=== PATIENT | female | born 1990 | race Caucasian/White ===

== ENCOUNTER 2020-12-19 11:24 | Outpatient (CLI) | payer MEDICAID ==
[2020-12-19 17:51] LABS: BASOPHILS # (AUTO) 0.1 10^3/uL (0.0-0.1); BASOPHILS % (AUTO) 0.9 %; EOSINOPHILS # (AUTO) 0.1 10^3/uL (0.0-0.7); EOSINOPHILS % (AUTO) 1.7 %; HCT - HEMATOCRIT 44.6 % (37.0-47.0); HGB - HEMOGLOBIN 14.2 g/dL (12.0-16.0); LYMPHOCYTES # (AUTO) 2.8 10^3/uL (1.5-3.5); MEAN CORPUSCULAR HEMOGLOBIN 27.2 pg (27.0-31.0); MEAN CORPUSCULAR HGB CONC 31.8 g/dL (32.0-36.0); MEAN CORPUSCULAR VOLUME 85.4 fL (81.0-99.0); MEAN PLATELET VOLUME 9.6 fL (7.9-10.8); MONOCYTES # (AUTO) 0.5 10^3/uL (0.0-1.0); NEUTROPHILS # (AUTO) 3.9 10^3/uL (1.5-6.6); NEUTROPHILS % (AUTO) 52.7 %; PLT - PLATELET COUNT 392 10^3/uL (130-450); RED BLOOD COUNT 5.22 10^6/uL (4.20-5.40); RED CELL DISTRIBUTION WIDTH 13.1 % (12.0-15.0); WHITE BLOOD COUNT 7.5 x10^3/uL (4.8-10.8)
[2020-12-19 18:21] LABS: ALBUMIN 4.2 g/dL (3.2-5.5); ALBUMIN/GLOBULIN RATIO 1.2 (1.0-2.2); ALKALINE PHOSPHATASE 83 IU/L (42-121); ALT ALANINE AMINOTRANSFERASE 15 IU/L (10-60); AST ASPARTATE AMINOTRANSFERASE 17 IU/L (10-42); BILIRUBIN,TOTAL 0.6 mg/dL (0.2-1.0); BUN - BLOOD UREA NITROGEN 8 mg/dL (6-20); CALCIUM 8.9 mg/dL (8.5-10.3); CARBON DIOXIDE - CO2 27 mmol/L (21-32); CHLORIDE 99 mmol/L (101-111); CHOL/HDL RATIO 6.4 (<4.4); CHOLESTEROL 261 mg/dL; CREATININE 0.6 mg/dL (0.4-1.0); GFR - MDRD 117 (>89); GLUCOSE 102 mg/dL (70-100); HDL CHOLESTEROL 41 mg/dL; LDL CHOLESTEROL,CALCULATED 191 mg/dL; LDL/HDL RATIO 4.7 (<4.4); POTASSIUM 4.1 mmol/L (3.5-5.0); SODIUM 136 mmol/L (135-145); TOTAL PROTEIN 7.7 g/dL (6.7-8.2); TRIGLYCERIDES 143 mg/dL; VLDL CHOLESTEROL 29 mg/dL
[2020-12-19 18:31] LABS: THYROID STIMULATING HORMONE 1.7 uIU/mL (0.34-5.60)
[2020-12-19 20:45] LABS: ESTIMATED AVERAGE GLUCOSE 108 mg/dL (70-100); HEMOGLOBIN A1c% 5.4 % (4.27-6.07)
== END 2020-12-19 11:25 | disposition home or self-care (01) ==
LOC: LAB.N 11:24
PROVIDERS: ATTEND Registered Nurse
DX: L68.0 Hirsutism (principal); Z83.3 Family history of diabetes mellitus; Z86.32 Personal history of gestational diabetes
CPT/HCPCS: 36415; 80053; 80061; 81599; 83036; 83498; 83721; 84403; 84443; 85025

== ENCOUNTER 2021-10-03 10:38 | Outpatient (CLI) | payer MEDICAID ==
[2021-10-03 18:56] LABS: BASOPHILS # (AUTO) 0.1 10^3/uL (0.0-0.1); EOSINOPHILS # (AUTO) 0.7 10^3/uL (0.0-0.7); EOSINOPHILS % (AUTO) 5.6 %; HCT - HEMATOCRIT 43.6 % (37.0-47.0); HGB - HEMOGLOBIN 14.5 g/dL (12.0-16.0); LYMPHOCYTES # (AUTO) 3.8 10^3/uL (1.5-3.5); LYMPHOCYTES % (AUTO) 31.9 %; MEAN CORPUSCULAR HEMOGLOBIN 27.6 pg (27.0-31.0); MEAN CORPUSCULAR HGB CONC 33.3 g/dL (32.0-36.0); MEAN PLATELET VOLUME 10.2 fL (7.9-10.8); MONOCYTES # (AUTO) 0.8 10^3/uL (0.0-1.0); MONOCYTES % (AUTO) 6.4 %; NEUTROPHILS # (AUTO) 6.5 10^3/uL (1.5-6.6); NEUTROPHILS % (AUTO) 54.8 %; PLT - PLATELET COUNT 370 10^3/uL (130-450); RED BLOOD COUNT 5.25 10^6/uL (4.20-5.40); RED CELL DISTRIBUTION WIDTH 13.3 % (12.0-15.0); WHITE BLOOD COUNT 11.8 x10^3/uL (4.8-10.8)
[2021-10-03 19:13] LABS: ALBUMIN 4.5 g/dL (3.2-5.5); ALBUMIN/GLOBULIN RATIO 1.3 (1.0-2.2); ALKALINE PHOSPHATASE 79 IU/L (42-121); ALT ALANINE AMINOTRANSFERASE 20 IU/L (10-60); AST ASPARTATE AMINOTRANSFERASE 20 IU/L (10-42); BILIRUBIN,TOTAL 0.8 mg/dL (0.2-1.0); BUN - BLOOD UREA NITROGEN 5 mg/dL (6-20); CALCIUM 9.1 mg/dL (8.5-10.3); CARBON DIOXIDE - CO2 26 mmol/L (21-32); CHLORIDE 100 mmol/L (101-111); CHOL/HDL RATIO 6.5 (<4.4); CHOLESTEROL 261 mg/dL; CREATININE 0.6 mg/dL (0.4-1.0); GFR - MDRD 116 (>89); GLUCOSE 92 mg/dL (70-100); HDL CHOLESTEROL 40 mg/dL; LDL CHOLESTEROL,CALCULATED 185 mg/dL; LDL/HDL RATIO 4.6 (<4.4); POTASSIUM 3.1 mmol/L (3.5-5.0); SODIUM 137 mmol/L (135-145); TOTAL PROTEIN 7.9 g/dL (6.7-8.2); TRIGLYCERIDES 178 mg/dL; VLDL CHOLESTEROL 36 mg/dL
[2021-10-03 19:20] LABS: THYROID STIMULATING HORMONE 1.93 uIU/mL (0.34-5.60)
[2021-10-03 20:21] LABS: ESTIMATED AVERAGE GLUCOSE 114 mg/dL (70-100); HEMOGLOBIN A1c% 5.6 % (4.27-6.07)
== END 2021-10-03 10:39 | disposition home or self-care (01) ==
LOC: LAB.N 10:38
PROVIDERS: ATTEND Registered Nurse
DX: E24.9 Cushing's syndrome, unspecified (principal); R73.9 Hyperglycemia, unspecified; R63.5 Abnormal weight gain; E28.2 Polycystic ovarian syndrome; L68.0 Hirsutism
CPT/HCPCS: 36415; 80053; 80061; 81599; 82533; 83036; 83721; 84443; 85025

== ENCOUNTER 2021-10-06 12:00 | Outpatient (CLI) | payer MEDICAID | END 2021-10-06 23:59 | disposition home or self-care (01) | LOC: LAB.R 12:00 | PROVIDERS: ATTEND Registered Nurse | DX: E24.9 Cushing's syndrome, unspecified (principal); R73.9 Hyperglycemia, unspecified; R63.5 Abnormal weight gain; L68.0 Hirsutism | CPT/HCPCS: 81599; 82530 ==

== ENCOUNTER 2023-04-15 14:32 | Outpatient (CLI) | payer MEDICAID ==
[2023-04-15 19:35] LABS: BASOPHILS # (AUTO) 0.1 10^3/uL (0.0-0.1); BASOPHILS % (AUTO) 0.6 %; EOSINOPHILS # (AUTO) 0.2 10^3/uL (0.0-0.7); EOSINOPHILS % (AUTO) 1.9 %; HCT - HEMATOCRIT 43.4 % (37.0-47.0); LYMPHOCYTES # (AUTO) 3.4 10^3/uL (1.5-3.5); LYMPHOCYTES % (AUTO) 36.1 %; MEAN CORPUSCULAR HEMOGLOBIN 27.7 pg (27.0-31.0); MEAN CORPUSCULAR HGB CONC 32.3 g/dL (32.0-36.0); MEAN CORPUSCULAR VOLUME 85.8 fL (81.0-99.0); MEAN PLATELET VOLUME 10.7 fL (7.9-10.8); MONOCYTES # (AUTO) 0.6 10^3/uL (0.0-1.0); MONOCYTES % (AUTO) 6.2 %; NEUTROPHILS # (AUTO) 5.2 10^3/uL (1.5-6.6); NEUTROPHILS % (AUTO) 54.5 %; PLT - PLATELET COUNT 357 10^3/uL (130-450); RED BLOOD COUNT 5.06 10^6/uL (4.20-5.40); RED CELL DISTRIBUTION WIDTH 12.7 % (12.0-15.0); WHITE BLOOD COUNT 9.5 x10^3/uL (4.8-10.8)
[2023-04-15 19:57] LABS: ALBUMIN 4.3 g/dL (3.2-5.5); ALBUMIN/GLOBULIN RATIO 1.5 (1.0-2.2); BILIRUBIN,TOTAL 0.4 mg/dL (0.2-1.0); CALCIUM 9.4 mg/dL (8.5-10.3); CREATININE 0.6 mg/dL (0.6-1.3); POTASSIUM 3.8 mmol/L (3.5-4.5); TOTAL PROTEIN 7.1 g/dL (6.4-8.9)
== END 2023-04-15 14:33 | disposition home or self-care (01) ==
LOC: LAB.N 14:32
PROVIDERS: ATTEND Registered Nurse
DX: R73.9 Hyperglycemia, unspecified (principal); E28.2 Polycystic ovarian syndrome; Z79.899 Other long term (current) drug therapy
CPT/HCPCS: 36415; 80053; 85025

== ENCOUNTER 2023-05-10 20:49 | Emergency (ER) | payer MEDICAID ==
--- NOTE | 2023-05-10 21:49 | ED Physician Documentation ---
PD HPI HEENT - Stated complaint Stated Complaint: RT EAR PX - Chief complaint Chief Complaint: Heent - History obtained from History obtained from: Patient - Additional information Additional information: HPI from patient. Patient states "my right ear is swollen and I cannot hear anything out of it". Last month, patient was prescribed a 1-week course of amoxicillin for possible dental infection. Over the past 3 weeks, the patient has had waxing and waning bilateral ear pain for which she was put on Augmentin 1 week ago. The Augmentin was prescribed as a 10-day course, and thus she has a few days left of the Augmentin. She presents due to worsening right ear pain over the past 1 to 2 days, now with right ear swelling and decreased hearing (the swelling and decreased hearing were not symptoms she has been having until 1-2 days ago) Review of Systems Constitutional: denies: Fever, Chills, Sweats Ears: reports: Loss of hearing (decreased hearing right ear), Ear pain. denies: Drainage/discharge Nose: reports: Reviewed and negative PD PAST MEDICAL HISTORY - Past Medical History Past Medical History: No - Past Surgical History Past Surgical History: No - Present Medications Home Medications: Ambulatory Orders Medication Instructions Recorded Confirmed Clindamycin [Cleocin] 300 mg PO Q8H 06/09/15 06/09/15 Hydrocodone/Acetaminophen 1 each PO DAILY 06/09/15 06/09/15 [Hydrocodon-Acetaminophen 5-325] Cefuroxime Axetil [Cefuroxime] 500 mg PO BID #19 tablet 05/10/23 HYDROcod/ACETAM 5/325 [Kenyon 5/325] 1 - 2 tablet PO Q6H PRN #14 tablet 05/10/23 - Allergies Allergies/Adverse Reactions: Allergies Allergy/AdvReac Type Severity Reaction Status Date / Time No Known Drug Allergies Allergy Verified 05/10/23 21:02 - Social History Does the pt smoke?: No Smoking Status: Never smoker Does the pt drink ETOH?: No Does the pt have substance abuse?: No - Immunizations Immunizations are current?: Yes - POLST Patient has POLST: No PD ED PE NORMAL - Vitals Vital signs reviewed: Yes - General General: Alert and oriented X 3, No acute distress, Well developed/nourished PD ED PE EXPANDED - HEENT HEENT: Other (erythema, swelling of boyd of right ear. Right EAC is swollen with scant purulent material. despite swelling, the EAC remains widely patent. TM is WNL. left ear WNL (both external exam and EAC/TM exam)) Results - Vitals Vitals: Vital Signs - 24 hr 05/10/23 05/10/23 20:57 22:36 Temperature 36.1 C L 36.5 C Heart Rate 117 H 90 Respiratory 18 16 Rate Blood Pressure 132/100 H 126/88 H O2 Saturation 98 100 Oxygen O2 Source Room air PD Medical Decision Making - ED course Complexity details: considered differential, d/w patient ED course: Physical exam is suggestive of right external otitis as well as extension of cellulitis localized to the boyd of the right ear. I advised her to stop taking the Augmentin. She is given cefuroxime in the ED and a prescription for cefuroxime is provided. She is also provided Cortisporin otic drops with the first dose instilled in the right ear in the ED. Return precautions are disc ussed. Patient is also given take-home pack of Vicodin, as [id number] medications have been ineffective at controlling her pain today. I also provided a prescription for Vicodin Departure - Departure Disposition: Home, Self Care Clinical Impression: Right otitis externa Qualifiers: Otitis externa type: unspecified type Chronicity: acute Qualified Code(s): H60.501 - Unspecified acute noninfective otitis externa, right ear Condition: Good Instructions: ED Otitis Externa Follow-Up: Meliza Robledo ARNP [Primary Care Provider] - Prescriptions: Cefuroxime Axetil [Cefuroxime] 500 mg PO BID #19 tablet HYDROcod/ACETAM 5/325 [Kenyon 5/325] 1 - 2 tablet PO Q6H PRN #14 tablet PRN Reason: Pain Comments: Seeing that your symptoms are worsening despite having taken several days of the Augmentin, I recommend you stop the Augmentin at this point. Instead, use the antibiotic eardrops as follows: 3 to 4 drops in the right ear 3 times per day for 1 week. I have also electronically submitted a prescription for an oral antibiotic to the [facility] pharmacy in [place], as well as a prescription for vicodin (narcotic/opiate pain medication). Forms: PCP List Discharge Date/Time: 05/10/23 22:36
[2023-05-10] MEDS ORDERED: HYDROcod/ACETAM 5/325 MG TABLET PO STA (22:17)
[2023-05-10] MEDS ORDERED: NEOMYCIN/POLYMYX/HC OTIC DROPS RIGHTEAR STA (22:18)
[2023-05-10 22:44] VITALS: BP 126/88; O2SAT 100
== END 2023-05-10 22:36 | disposition home or self-care (01) ==
LOC: ED 20:49
DX: H60.501 Unspecified acute noninfective otitis externa, right ear (principal)
CPT/HCPCS: 99282; 99283; A9270

== ENCOUNTER 2023-11-28 14:09 | Outpatient (CLI) | payer MEDICAID ==
--- NOTE | 2023-11-28 15:07 | Sleep Patient Instructions ---
Sleep Center Visit Summary - Patient Visit Information Reason for Visit: Initial consult for evaluation of sleep disordered breathing and other sleep issues. - Patient Instructions Instructions Attached: Sleep Study Home Monitor Additional Instructions: You will be completing a sleep study, either an in-lab polysomnography (PSG) or home sleep study (HST). You will follow-up in the sleep care office after the sleep study is completed to hear the results and talk about therapy, if needed. You will be called by our office staff to schedule this appointment, but you may contact us with any questions. - Clinic Information Contact: [facility] [address] [place] [address] [email or web address] T: [phone]
--- NOTE | 2023-11-28 15:12 | SLEEP CARE CONSULTATION ---
Information from patient questionnaire entered by Meme Hopkins. I have reviewed and concur with the information entered by Meme Hopkins. This document represents the service I personally performed and the decisions made by me, Karma Garcia ARNP. History of Present Illness Service Date and Time: 11/28/2023 1409 Reason for Visit: New patient Chief Complaint: reports: Unrefreshed sleep, Snoring, Excessive daytime sleepiness Date of Onset: 2 MONTHS Usual bedtime: 2230 Time it takes to fall asleep: 3HRS Snores at night: Yes Observed to quit breathing while asleep: Yes Sleeps alone due to snoring: No Number of times waking at night: 2 Reasons for waking at night: reports: Bathroom Toss, Turn, or Twitch while sleeping: Yes Recalls having dreams: No Usually gets out of bed at: 0600 Feels refreshed in the morning: No Morning headache: Yes Sleepy or fatigued during the day: Yes Ever fallen asleep while driving: No Takes day naps: Yes Dreams during day naps: No Prior sleep studies: No Additional HPI information: I had the pleasure of seeing BOY BRUNO today regarding the possibility of her having a sleep disorder. Her current complaints are snoring and unrefreshed sleep. She says she has gained about 30 pounds. She thought maybe it may be related to her medication. The patient tells me that she normally goes to bed around 10:30 pm, and it takes her approximately 3 hours to fall asleep. She has been told that she snores loudly and irregularly at night. She has been observed to stop breathing in her sleep. She can recall waking up on the average of 2 times during the night. Most of the time she wakes up because of bathroom needs. She daughter has told her she will wake up and complain about being short of air. There is a lot of tossing and turning in her sleep. Generally there is no recollection of dreams. She usually wakes up at 0600 and does not feel refreshed. She is taking Phentermine for weight loss for a few weeks. She usually does have a morning headache about 2 times a month. During the day she complains of feeling sleepy and fatigued. She has never fallen asleep while driving nor has any accident due to sleepiness. She usually naps almost daily before she started on the P[place] for about 60 minutes during the day. If she naps, upon falling asleep during the day she denies having vivid dreams. She reports having impaired concentration during the day. There is no somniloquy (sleep talking) or somnambulism (sleep walking). - Parasomnia Symptoms Ever been unable to move upon waking from sleep: No Walks in sleep: No Talks in sleep: No Ever acted out dreams in sleep: No Ever felt weak in the knees when startled or emotional: No Bothered by creepy, crawly, restless sensations in legs: Yes Problems with memory or concentration: Yes Subjective Initial Pelican Sleepiness Scale score: 15 (11/28/23) Past Medical History Past Medical History: reports: Anemia, Anxiety, Asthma, Depression, GERD, Other (EPILEPSY as a child, resolved; OBESITY, RULING OUT PCOS) Social History The patient's occupation is a [employer]. Patient is Single and lives in . Have you smoked in the past 12 months: No Alcohol use: No Caffeine use: Yes Caffeine amount and frequency: 2 PER DAY BUT CUTTING BACK Family History Family history of sleep disordered breathing: Yes Family Hx Sleep Apnea: Other: Snoring (NEPHEW) Allergies and Home Medications Known drug allergies: No Drug allergies reviewed: Yes Home medication list reviewed: Yes (as listed) Allergy and home medication list: Allergies No Known Drug Allergies Allergy (Verified 11/26/23 09:19) Home Medications Medication Instructions Recorded Confirmed Last Taken Type Albuterol See Rx Instructions .ROUTE .COMPLEX 11/28/23 11/28/23 Unknown History Phentermine HCl See Rx Instructions .ROUTE .COMPLEX 11/28/23 11/28/23 Unknown History Spironolactone [Aldactone] See Rx Instructions .ROUTE .COMPLEX 11/28/23 11/28/23 Unknown History Review of Systems Weight gain over past 5 years: 37 Weight loss over past 5 years: 17 Cardiovascular: reports: palpitations Respiratory: reports: shortness of breath, wheeze Gastrointestinal: reports: heartburn, nausea, vomitting Neurological: reports: headaches, disorientation Psychiatric: reports: anxiety, depression Ear/Nose/Throat: reports: nasal congestion, sinus problems, dry mouth/throat, hoarseness. denies: tonsillectomy Endocrine: reports: sluggishness, too hot or cold, increased appetite, increased urination Musculoskeletal: reports: joint pain, neck pain, back pain, muscle pain or cramping Immunologic: reports: sneezing, itching Physical Exam Vital signs obtained and entered by: MEME Echeverria MA Blood Pressure: 122/82 (LEFT ARM) Cuff size: regular Heart Rate: 124 O2 Saturation: 98 Height: 4 ft 10 in Weight: 165 lb 6.4 oz Body Mass Index: 34.5 BMI Classification: Obese Neck circumference: 16 Mouth and throat: narrow oropharynx Soft palate: long Hard palate: normal Uvula: normal Uvula visualization: 50% Mallampati Class II Tongue: enlarged in size with teeth chaudhry on lateral edges Tonsils: 1+ Neck: normal w/o lymphadenopathy or thyromegaly Heart: regular rate and rhythm Lungs: clear bilaterally Impression and Plan 1. Suspected Obstructive Sleep Apnea-Hypopnea Syndrome, as suggested by a history of loud and irregular snoring, unrefreshed sleep, cognitive impairment, and excessive daytime sleepiness. Narrow oropharynx and obesity are common predisposing factors for obstructive sleep apnea-hypopnea syndrome. I recommend proceeding to polysomnography to confirm the diagnosis and to assess severity. If the patient has significant sleep disordered breathing, a manual CPAP titration study will also be performed to find the optimal treatment pressure. I informed the patient of what the sleep studies involve and after some discussion, obtained agreement to proceed. The pathophysiology of obstructive sleep apnea-hypopnea syndrome was discussed with the patient and health risks of cardiovascular and cerebrovascular disease if not treated. Risks of drowsy driving discussed in detail and patient advised to avoid long distance driving and to chute puller at the first sign of drowsiness. Patient agreed to plan. * Schedule polysomnography +- manual CPAP titration study and return in 1-2 weeks after the study to discuss result and initiate therapy. * Avoid long distance driving or driving when feeling sleepy. * Avoid alcohol, sedative and muscle relaxant around bedtime. * Attempt to lose weight. * Review instructions provided by trained office staff on how to prepare for the sleep study. * Return for follow-up after sleep study completed. Counseling Topics: Weight loss health impact Plan: PSG/HST and follow up Visit Type: In Office Time Spent with Patient (minutes): 31 Provider Statement: I spent 100% of the Face to Face Visit with the patient with greater than 50% spent counseling the patient and coordination of care.
[2023-11-28 15:16] VITALS: BP 122/82; O2SAT 98
== END 2023-11-28 14:10 | disposition home or self-care (01) ==
LOC: SC 14:09
PROVIDERS: ATTEND Nurse Practitioner Family
DX: G47.10 Hypersomnia, unspecified (principal); G47.8 Other sleep disorders; R06.83 Snoring; R41.89 Other symptoms and signs involving cognitive functions and awareness; R51.9 Headache, unspecified; E66.9 Obesity, unspecified; Z68.34 Body mass index [BMI] 34.0-34.9, adult
CPT/HCPCS: 99203; 99212

== ENCOUNTER 2023-12-18 14:23 | Outpatient (CLI) | payer MEDICAID | END 2023-12-18 14:24 | disposition home or self-care (01) | LOC: SC 14:23 | PROVIDERS: ATTEND Nurse Practitioner Family | DX: R09.02 Hypoxemia (principal); R00.0 Tachycardia, unspecified | CPT/HCPCS: 95806 ==

== ENCOUNTER 2023-12-19 16:28 | Outpatient (CLI) | payer MEDICAID ==
--- NOTE | 2023-12-20 14:53 | Ultrasound Report ---
PROCEDURE: Pelvic w/Transvaginal INDICATIONS: POLYCYSTIC OVARIAN SYNDROME TECHNIQUE: Real-time scanning was performed of the pelvic organs, with image documentation. Additional endovagi nal scanning was necessary due to incomplete visualization of the adnexal and endometrial structures by transabdominal scanning. COMPARISON: None. FINDINGS: Uterus: Uterus is anteverted and normal in size at 6.1 x 3.9 x 4 cm. The myometrium is heterogeneou s. The endometrium measures 8 mm in combined thickness. No endometrial mass or fluid. Prominent nab othian cysts are noted within endocervical canal measures up to 0.9 x 0.7 x 0.8 cm in size. Ovaries: The right ovary measures 2.3 x 1.7 x 2.5 cm, with a calculated ovarian volume of 4.94 cc. The left ovary measures 2.3 x 2.1 x 3.3 cm, with a calculated ovarian volume of 8.5 cc. The ovaries have a no rmal sonographic appearance. Less than 12 follicles can be seen in each ovary. No adnexal masses ar e seen. No cystic lesions measuring greater than 3 cm. Other: No pathologic free abdominal or pelvic fluid. IMPRESSION: 1. No endometrial mass or fluid. Small nabothian cysts as above. 2. Normal-appearing bilateral ovaries. Reviewed by: Uli Hernández MD on 12/20/2023 2:51 PM PDT Approved by: Uli Hernández MD on 12/20/2023 2:51 PM PDT Station ID: [id number]
== END 2023-12-19 16:29 | disposition home or self-care (01) ==
LOC: DI 16:28
PROVIDERS: ATTEND Nurse Practitioner
DX: E28.2 Polycystic ovarian syndrome (principal)

== ENCOUNTER 2024-01-23 14:22 | Outpatient (CLI) | payer MEDICAID ==
--- NOTE | 2024-01-23 14:43 | Sleep Patient Instructions ---
Sleep Center Visit Summary - Patient Visit Information Reason for Visit: Sleep study followup - Patient Instructions Additional Instructions: Your sleep study today was negative for significant sleep disordered breathing. However, you did have elevated respiratory episodes when sleeping on your back. You should avoid sleeping on your back to control these respiratory episodes. You were found to have episodes of snoring. There are different ways to control snoring including weight loss, oral devices made by a dentist or surgical options through ENT specialist. You should not use oral devices that do not fit properly because they can affect your bite. You should also check insurance coverage of oral devices for snoring because they may not be cover well. You may obtain a referral to an ENT specialist through your primary provider. Follow-up as needed. - Clinic Information Contact: [facility] [address] [place] [address] [email or web address] T: [phone]
--- NOTE | 2024-01-23 14:47 | SLEEP CARE CONSULTATION ---
Information from patient questionnaire entered by Rochelle Hopkins. I have reviewed and concur with the information entered by Rochelle Hopkins. This document represents the service I personally performed and the decisions made by , Karma Garcia ARNP. History of Present Illness Service Date and Time: 01/23/2024 1422 Initial [place] Sleepiness Scale score: 15 (11/28/23) Current [place]usk Sleepiness Scale score: 14 (01/23/24) Additional HPI information: BOY BRUNO returns for follow up and results of the recently performed home sleep study done on 12/18/2023. The patient was informed of the following findings: No significant sleep diso rdered breathing with an average AHI of 4.8 and odilia oxygen saturation of 82%. Her supine AHI was elevated at 7.2 and she had tachycardia at 144 noted on night of study. I explained the pathophysiology behind obstructive sleep apnea. Patient does not have sleep apnea and was advised how weight gain could increase the risk of developing sleep apnea in the future. I strongly encouraged the patient to lose weight. Patient does not have significant sleep disordered breathing but has elevated AHI in supine position so advised positional therapy. Methods to achieve positional management therapy were discussed; such as, positioning with pillows, wearing a T-shirt with tennis balls sewn into the back or commercially available products. Patient has light snoring. Snoring can be reduced by weight loss. Weight loss is best achieved with diet consult. Patient instructed to contact PCP for referral. Snoring can also be treated with an oral appliance from a dentist. Advised to check insurance coverage. In addition, an ENT evaluation can be do to see if other treatment is indicated. Patient does not drink alcohol. Patient was cautioned about risks of drowsy driving until sleepiness symptoms resolve. Patient denies drowsy driving. Sleep Study - Results Type of Sleep Study: Home sleep study (COMPLETED 12/18/23) Prior sleep studies: No Polysomnography/Home Sleep Study results: Physician Impression: The quality of the study is good. The length of the study is adequate (> 240 minutes). Please also see the tabulated and graphic data. 1. No significant slleep-related breathing disorder, with an AHI of 4.8/hr and odilia SaO2 of 82%. During the study, the patient had 28 apneas (28 obstructive, 0 central, 0 mixed) and 15 hypopneas. The longest episode lasted 101.5 seconds. The few respiratory events occurred almost exclusivelyduring supine sleep (supine AHI was 7.2 and non-supine, 1.76). 2. Hypoxemia (ICD-10 R09.02), mild, with the lowest oxygen saturation of 82 % and 1.1 minutes with SaO2 under 90%. Baseline oxygen saturation was normal (Average oxygen saturation was 95%). 3. Tachycardia, with maximum recorded heart rate of 144 beats per minute. Allergies and Home Medications Known drug allergies: No Drug allergies reviewed: Yes Home medication list reviewed: Yes (no changes) Allergy and home medication list: Allergies No Known Drug Allergies Allergy (Verified 01/23/24 14:22) Review of Systems Review of systems same as previous: Yes (NO CHANGE) Physical Exam Vital signs obtained and entered by: ROCHELLE Echeverria MA Blood Pressure: 131/90 (RIGHT ARM) Cuff size: regular Heart Rate: 104 O2 Saturation: 99 Height: 4 ft 10 in Weight: 161 lb Weight change since last visit: 4 lb loss Body Mass Index: 33.6 BMI Classification: Obese Impression and Plan 1. Snoring but no significant sleep disordered breathing. However, she does have elevated supine AHI and should avoid sleeping supine. She voiced understanding. Patient advised that often weight loss will reduce snoring as well as apnea risk. An oral appliance can also be used for snoring. This would require a dental consultation. Patient cautioned not to use other online appliances as can cause bite issues. A list of accredited dentists in area and one local dentist who makes oral appliances given. Patient is advised to check if insurance will cover. An ENT consult can also be helpful to determine if any other treatment is an option. 3. Obesity, unspecified. Currently patients BMI is 33.6. She has lost weight. She is exercising more. Obesity increases the risk of apnea, CPAP pressure requirements and overall health risks especially cardiovascular and diabetes. Thus patient is advised to continue to try to lose weight. 4. Tachycardia, unspecified. Patient was noted to have elevated heart rate up to 144 bpm on night for sleep study. * Follow up with primary provider for elevated heart rate during night of sleep study * Continue to try to lose weight * Return as needed for follow up. Counseling Topics: Sleeping position, Weight loss health impact Follow up with Sleep Care in: as needed Follow up with: PCP Follow up recommended for: Other (tachycardia) Visit Type: In Office Time Spent with Patient (minutes): 20 Provider Statement: I spent 100% of the Face to Face Visit with the patient with greater than 50% spent counseling the patient and coordination of care.
[2024-01-23 14:56] VITALS: BP 131/90; O2SAT 99
== END 2024-01-23 14:23 | disposition home or self-care (01) ==
LOC: SC 14:22
PROVIDERS: ATTEND Nurse Practitioner Family
DX: R06.83 Snoring (principal); E66.9 Obesity, unspecified; Z68.33 Body mass index [BMI] 33.0-33.9, adult; R00.0 Tachycardia, unspecified
CPT/HCPCS: 99212; 99213

== ENCOUNTER 2024-02-20 13:21 | Outpatient (CLI) | payer MEDICAID | END 2024-02-20 13:22 | disposition home or self-care (01) | LOC: NS 13:21 | PROVIDERS: ATTEND Registered Nurse | DX: Z71.3 Dietary counseling and surveillance (principal); E66.9 Obesity, unspecified; Z68.32 Body mass index [BMI] 32.0-32.9, adult | CPT/HCPCS: 97802 ==